=== PATIENT | male | born 1980 | race African-American/Black ===

== ENCOUNTER 2025-11-18 10:53 | Emergency (ER) | payer MEDICAID ==
[~2025-11-18] VITALS: Ht 180.3 cm; Wt 82.0 kg
[~2025-11-18 10:53] MED LIST: NO MEDS; NONE REPORTED
[2025-11-18 10:55] VITALS: O2SAT 98
[2025-11-18 12:02] LABS: CLARITY URINE CLEAR (CLEAR); COLOR URINE YELLOW (YELLOW); GLUCOSE URINE NEGATIVE (NEGATIVE); KETONES URINE NEGATIVE (NEGATIVE); LEUKOCYTE ESTERASE URINE NEGATIVE (NEGATIVE); NITRITE URINE NEGATIVE (NEGATIVE); OCCULT BLOOD URINE NEGATIVE (NEGATIVE); PH URINE 6.0 (4.5-8.0); PROTEIN URINE TRACE (NEGATIVE); SPECIFIC GRAVITY URINE 1.024 (1.005-1.030); UROBILINOGEN URINE 0.2 E.U./dL (0.2-1.0)
[2025-11-18 12:05] LABS: HEMATOCRIT. 32.6 % (42.0-52.0); HEMOGLOBIN. 11.0 g/dL (14.0-18.0); MEAN PLATELET VOLUME 8.4 fl (7.4-10.4); PLATELET 125 x1000/uL (130-400); RED BLOOD CELL COUNT 3.49 mill/uL (4.7-6.1); RED CELL DISTRIBUTION WIDTH 14.1 % (11.6-14.6)
[2025-11-18 12:25] LABS: CREATININE 1.4 mg/dL (0.6-1.3); UREA NITROGEN BLOOD 17 mg/dL (9-23)
[2025-11-18 12:26] LABS: PROTEIN TOTAL 6.7 g/dL (6.0-8.3)
[2025-11-18 12:27] LABS: ASPARTATE AMINOTRANSFERASE 39 IU/L (<34); BILIRUBIN TOTAL 0.3 mg/dL (0.1-1.0)
[2025-11-18 12:30] LABS: SQUAMOUS EPITHELIAL CELL URINE FEW /lpf (RARE/1+)
[2025-11-18 12:31] LABS: CALCIUM OXALATE CRYSTALS URINE 2+ /lpf
[2025-11-18 12:32] LABS: RBC URINE NONE SEEN /hpf (0-2)
[2025-11-18 12:33] LABS: BACTERIA URINE NONE SEEN
[2025-11-18 12:45] LABS: BAND% 2.0 % (1.0-6.0); LYMPHOCYTES % MANUAL 10.0 % (20.0-50.0); MONOCYTES % MANUAL 25.0 % (2.0-8.0); NEUTROPHILS % MANUAL 63.0 % (45.0-75.0)
[2025-11-18 12:46] LABS: PLATELET ESTIMATE SLIGHTLY DECREASED
[2025-11-18] MEDS ORDERED: TAMS-54 MT (14:19)
[2025-11-18 14:42] VITALS: BP 108/45; PULSE 85; RESP 15; TEMP 36.8; O2SAT 99
== END 2025-11-18 14:47 | disposition home or self-care (01) ==
LOC: ER 10:53
DX: R32 Unspecified urinary incontinence (principal); Z79.899 Other long term (current) drug therapy
CPT/HCPCS: 36415; 74176; 80053; 81003; 85025; 99284